=== PATIENT | female | born 1995 | race Caucasian/White ===

== ENCOUNTER 2017-09-06 19:15 | Emergency (ER) | payer MEDICAID, OTHER ==
[2017-09-06] MEDS ORDERED: SODIUM CHLORIDE 0.9% 1,000 ML IV ONE (19:30)
[2017-09-06 20:05] LABS: BASOPHILS # (AUTO) 0.2 10^3/uL (0.0-0.1); BASOPHILS % (AUTO) 1.2 %; EOSINOPHILS % (AUTO) 0.2 %; HGB - HEMOGLOBIN 14.2 g/dL (12.0-16.0); LYMPHOCYTES # (AUTO) 1.8 10^3/uL (1.5-3.5); LYMPHOCYTES % (AUTO) 11.2 %; MEAN CORPUSCULAR HEMOGLOBIN 31.2 pg (27.0-31.0); MEAN CORPUSCULAR HGB CONC 33.7 g/dL (32.0-36.0); MEAN CORPUSCULAR VOLUME 92.6 fL (81.0-99.0); MEAN PLATELET VOLUME 8.3 fL (7.9-10.8); MONOCYTES # (AUTO) 1.3 10^3/uL (0.0-1.0); MONOCYTES % (AUTO) 8.2 %; NEUTROPHILS # (AUTO) 12.4 10^3/uL (1.5-6.6); NEUTROPHILS % (AUTO) 79.2 %; RED BLOOD COUNT 4.54 10^6/uL (4.20-5.40); RED CELL DISTRIBUTION WIDTH 12.5 % (12.0-15.0); UNCORRECTED WHITE BLOOD COUNT 15.6 x10^3/uL; WHITE BLOOD COUNT 15.6 x10^3/uL (4.8-10.8)
--- NOTE | 2017-09-06 20:10 | ED Physician Documentation ---
PD HPI SYNCOPE - Stated complaint Stated Complaint: SYNCOPE - Chief complaint Chief Complaint: Neuro - History obtained from History obtained from: Patient, Family - History of Present Illness Witnessed: Witnessed Timing - onset: Today Duration: Seconds (5) Preceding symptoms: Light headed, Generalized weakness, Other (nausea) Associated symptoms: No: Seizure, Incontinant of urine, Incontinant of stool, Headache, Vision changes, Chest pain, Palpitations, Diaphoresis, Dyspnea, Abdominal pain Contributing factors: Other (was in a hot shower) Injury occurred: None. No: Fell, Head injury, Neck injury, Bit tongue Pain level max: 0 Pain level now: 0 Similar symptoms before: Has not had sx before Recently seen: Not recently seen Review of Systems Constitutional: denies: Fever, Chills GI: denies: Vomiting, Diarrhea : denies: Dysuria, Frequency, Hesitancy, Now EGA Skin: denies: Rash Musculoskeletal: denies: Neck pain, Back pain Neurologic: denies: Generalized weakness, Focal weakness, Numbness, Seizure, Confused, Altered mental status, Headache, Head injury, LOC PD PAST MEDICAL HISTORY - Past Medical History Past Medical History: No - Past Surgical History Past Surgical History: No - Present Medications Home Medications: Ambulatory Orders Medication Instructions Recorded Confirmed No Known Home Medications [No 09/06/17 09/06/17 Known Home Medications] - Allergies Allergies/Adverse Reactions: Allergies Allergy/AdvReac Type Severity Reaction Status Date / Time No Known Drug Allergies Allergy Verified 09/06/17 19:29 - Social History Does the pt smoke?: No Smoking Status: Never smoker Does the pt drink ETOH?: No Does the pt have substance abuse?: No - Immunizations Immunizations are current?: Yes PD ED PE NORMAL - Vitals Vital signs reviewed: Yes - General General: Alert and oriented X 3, No acute distress, Well developed/nourished - HEENT HEENT: Atraumatic, PERRL, Ears normal, Moist mucous membranes - Neck Neck: Supple, no meningeal sign, No bony TTP - Cardiac Cardiac: RRR, No murmur, Strong equal pulses - Respiratory Respiratory: No respiratory distress, Clear bilaterally - Abdomen Abdomen: Soft, Non tender, Non distended - Back Back: No CVA TTP, No spinal TTP - Derm Derm: Warm and dry, No rash - Extremities Extremities: No edema, No calf tenderness / cord - Neuro Neuro: Alert and oriented X 3, mobile phlebotomist 2-12 intact, No motor deficit, No sensory deficit, Normal speech Eye Opening: Spontaneous Motor: Obeys Commands Verbal: Oriented GCS Score: 15 - Psych Psych: Normal mood, Normal affect Results - Vitals Vitals: Vital Signs - 24 hr 09/06/17 09/06/17 09/06/17 19:20 19:39 21:22 Temperature 37.1 C 37.2 C Heart Rate 112 H 110 H Respiratory 18 18 Rate Blood Pressure 142/102 H 140/86 H O2 Saturation 98 100 09/06/17 22:05 Temperature Heart Rate 75 Respiratory 18 Rate Blood Pressure 139/72 H O2 Saturation 97 Oxygen O2 Source Room air - EKG (time done) 2002 Rate: Rate (enter#) (76) Rhythm: NSR (sinus arrhythmia) [place]: Normal Intervals: Normal [place] QRS: Normal Ischemia: Normal ST segments Computer interpretation: Agree with computer - Labs Labs: Laboratory Tests 09/06/17 09/06/17 09/06/17 19:54 19:54 19:54 WBC 15.6 H RBC 4.54 Hgb 14.2 Hct 42.0 MCV 92.6 MCH 31.2 H MCHC 33.7 RDW 12.5 Plt Count 319 MPV 8.3 Neut # 12.4 H Lymph # 1.8 [place] # 1.3 H Eos # 0.0 Baso # 0.2 H Absolute Nucleated RBC 0.00 Nucleated RBC % 0.0 D-Dimer 536.4 H Sodium 138 Potassium 3.3 L Chloride 102 Carbon Dioxide 24 Anion Gap 12.0 BUN 15 Creatinine 0.7 Estimated GFR (MDRD) 105 Glucose 119 H Calcium 9.2 Total Bilirubin 0.8 AST 20 ALT 14 Alkaline Phosphatase 39 L Troponin I Total Protein 8.0 Albumin 4.2 Globulin 3.8 Albumin/Globulin Ratio 1.1 Lipase 26 Urine Color Urine Clarity Urine pH Ur Specific [place] Urine Protein Urine Glucose (UA) Urine Ketones Urine Occult Blood Urine Nitrite Urine Bilirubin Urine Urobilinogen Ur Leukocyte Esterase Urine RBC Urine WBC Ur Squamous Epith Cells Urine Bacteria Ur Microscopic Review Urine Culture Comments Urine HCG, Qual 09/06/17 09/06/17 19:54 20:25 WBC RBC Hgb Hct MCV MCH MCHC RDW Plt Count MPV Neut # Lymph # [place] # Eos # Baso # Absolute Nucleated RBC Nucleated RBC % D-Dimer Sodium Potassium Chloride Carbon Dioxide Anion Gap BUN Creatinine Estimated GFR (MDRD) Glucose Calcium Total Bilirubin AST ALT Alkaline Phosphatase Troponin I < 0.04 Total Protein Albumin Globulin Albumin/Globulin Ratio Lipase Urine Color YELLOW Urine Clarity CLOUDY Urine pH 6.0 Ur Specific [place] 1.025 Urine Protein TRACE Urine Glucose (UA) NEGATIVE Urine Ketones TRACE Urine Occult Blood SMALL H Urine Nitrite NEGATIVE Urine Bilirubin SMALL H Urine Urobilinogen 0.2 (NORMAL) Ur Leukocyte Esterase NEGATIVE Urine RBC 6-10 H Urine WBC 4-5 Ur Squamous Epith Cells NONE SEEN Urine Bacteria Rare Ur Microscopic Review INDICATED Urine Culture Comments NOT INDICATED Urine HCG, Qual NEGATIVE - Rads (name of study) cxr Radiology: Prelim report reviewed, EMP read contemporaneously, See rad report ( normal) CT PA Radiology: Prelim report reviewed, EMP read contemporaneously, See rad report ( No evidence for pulmonary emboli. Mild to moderate motion artifact limited. No acute findings are seen) PD MEDICAL DECISION MAKING - ED course Complexity details: reviewed results, re-evaluated patient, considered differential, d/w patient, d/w family ED course: Patient is a 22-year-old female who presents to the emergency department with syncope today. This was occurred while she was in the shower, likely vasovagal. She is well-appearing, nontoxic. No acute findings on EKG. Her white blood cell count was elevated and she was tachycardic and denied any recent illnesses originally, therefore a d-dimer was performed which was elevated. CT scan was then undertaken which is negative for PE. Patient then stated that she had been sick with a viral URI over the past few weeks. We will continue supportive care and follow-up with her PCP. Patient counseled regarding signs and symptoms for which I believe and urgent re-evaluation would be necessary. Patient with good understanding of and agreement to plan and is comfortable going home at this time This document was made in part using voice recognition software. While efforts are made to proofread this document, sound alike and grammatical errors may occur. Departure - Departure Disposition: 01 Home, Self Care Clinical Impression: Vasovagal syncope Condition: Good Instructions: ED Syncope Vasovagal Follow-Up: Ember Umanzor MD [Primary Care Provider] - Within 1 week Comments: Drink plenty of fluids at home. Your tests are normal tonight.
[2017-09-06 20:19] LABS: ALBUMIN/GLOBULIN RATIO 1.1 (1.0-2.2); BILIRUBIN,TOTAL 0.8 mg/dL (0.2-1.0); CALCIUM 9.2 mg/dL (8.5-10.3); CREATININE 0.7 mg/dL (0.4-1.0); POTASSIUM 3.3 mmol/L (3.5-5.0)
--- NOTE | 2017-09-06 20:52 | XRAY Preliminary Report ---
Exam: XR CHEST 1 VIEW IMPRESSION: Normal single view chest. [facility] SITE ID: [id number]
--- NOTE | 2017-09-06 20:55 | XRAY Report ---
EXAM: CHEST RADIOGRAPHY EXAM DATE: 09/06/2017 08:46 PM. CLINICAL HISTORY: Syncope. COMPARISON: None. TECHNIQUE: 1 view. FINDINGS: Lungs/Pleura: No focal opacities evident. No pleural effusion. No pneumothorax. Mediastinum: Within exam limitations, the cardiomediastinal contour is normal. Other: None. IMPRESSION: Normal single view chest. [facility] Referring Provider Line: [phone] SITE ID: [id number]
[2017-09-06] MEDS ORDERED: ONDANSETRON 4 MG/2 ML VIAL IVP STA (20:56)
[2017-09-06 21:02] LABS: BILIRUBIN,URINE SMALL (NEGATIVE); HCG UR QUAL NEGATIVE; UA w/ MICROSCOPIC CHARGE YES
[2017-09-06] MEDS ORDERED: IOPAMIDOL-300 100 ML VIAL ONE (21:11)
[2017-09-06 21:14] LABS: UR CULTURE IF IND NOT INDICATED
[2017-09-06] MEDS ORDERED: ONDANSETRON 4 MG/2 ML VIAL ONE (21:19)
[2017-09-06] MEDS ORDERED: IOPAMIDOL-300 100 ML VIAL IVP ONE (21:38)
--- NOTE | 2017-09-06 22:35 | CT Preliminary Report ---
Exam: CT CHEST ANGIO (PE) IMPRESSION: 1. No evidence for pulmonary emboli. Mild to moderate motion artifact limited. No acute findings are seen. [facility] SITE ID: [id number]
--- NOTE | 2017-09-06 22:37 | CT Report ---
EXAM: CT ANGIOGRAM CHEST EXAM DATE: 09/06/2017 09:49 PM. CLINICAL HISTORY: Syncope, elevated d-dimer. COMPARISON: None. TECHNIQUE: Routine helical imaging was performed through the chest in the pulmonary arterial phase. I V Contrast: 80 mL Isovue 300. Reconstructions: Coronal 3-D MIP reconstructions.Sagittal and coronal. In accordance with CT protocol optimization, one or more of the following dose reduction techniques w ere utilized for this exam: automated exposure control, adjustment of mA and/or KV based on patient s ize, or use of iterative reconstructive technique. FINDINGS: Pulmonary Arteries: No evidence for pulmonary emboli. Mild to moderate motion artifact limited. Lungs/Pleura: No consolidation, nodules, or edema. No effusions or pneumothorax. Motion artifact limi manuel. Mediastinum: Normal. No cardiac enlargement or adenopathy. Thoracic Aorta: Unremarkable. Upper Abdomen: Unremarkable. IMPRESSION: 1. No evidence for pulmonary emboli. Mild to moderate motion artifact limited. No acute findings are seen. [facility] Referring Provider Line: [phone] SITE ID: [id number]
[2017-09-06 23:06] VITALS: BP 135/71
== END 2017-09-06 22:55 | disposition home or self-care (01) ==
LOC: ED 19:15
DX: R55 Syncope and collapse (principal)
CPT/HCPCS: 36415; 71010; 71275; 80053; 81001; 81025; 83690; 84484; 85025; 85379; 93005; 96360; 99283; 99284; Q9967; 81003; 87086

== ENCOUNTER 2021-11-15 20:10 | Emergency (ER) | payer MEDICAID ==
[2021-11-15 20:48] LABS: BASOPHILS # (AUTO) 0.1 10^3/uL (0.0-0.1); BASOPHILS % (AUTO) 0.9 %; EOSINOPHILS # (AUTO) 0.2 10^3/uL (0.0-0.7); EOSINOPHILS % (AUTO) 1.5 %; HCT - HEMATOCRIT 34.2 % (37.0-47.0); HGB - HEMOGLOBIN 11.6 g/dL (12.0-16.0); LYMPHOCYTES # (AUTO) 2.7 10^3/uL (1.5-3.5); LYMPHOCYTES % (AUTO) 22.9 %; MEAN CORPUSCULAR HEMOGLOBIN 30.1 pg (27.0-31.0); MEAN CORPUSCULAR HGB CONC 33.9 g/dL (32.0-36.0); MEAN CORPUSCULAR VOLUME 88.6 fL (81.0-99.0); MEAN PLATELET VOLUME 8.6 fL (7.9-10.8); MONOCYTES # (AUTO) 0.9 10^3/uL (0.0-1.0); NEUTROPHILS # (AUTO) 7.7 10^3/uL (1.5-6.6); NEUTROPHILS % (AUTO) 65.8 %; PLT - PLATELET COUNT 551 10^3/uL (130-450); RED BLOOD COUNT 3.86 10^6/uL (4.20-5.40); WHITE BLOOD COUNT 11.7 x10^3/uL (4.8-10.8)
--- NOTE | 2021-11-15 20:49 | ED Physician Documentation ---
History of Present Illness - Stated complaint Stated Complaint: BLURRY VISION/POST C SECTION - Chief complaint Chief Complaint: Neuro - History obtained from History obtained from: Patient - Additonal information Additional information: G1, P1 previously healthy, with PMH of iron deficiency anemia only during , status post November [address] 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 sent in by her orientation and mobility instructor. patient reports she had uncomplicated prior to delivery, had uncomplicated c section and was dc'd after 36h. urinating and defecating normally. denies pain or fever. infant is also doing well and had no nicu stay. Review of Systems Ten Systems: 10 systems reviewed and negative Constitutional: denies: Fever, Chills Cardiac: denies: Chest pain / pressure Respiratory: denies: Dyspnea, Cough GI: reports: Nausea. denies: Abdominal Pain, Vomiting : denies: Dysuria Neurologic: reports: Headache, Other (vision changes) PD PAST MEDICAL HISTORY - Past Surgical History Past Surgical History: No - Present Medications Home Medications: Ambulatory Orders Medication Instructions Recorded Confirmed No Known Home Medications 09/06/17 09/06/17 - Allergies Allergies/Adverse Reactions: Allergies Allergy/AdvReac Type Severity Reaction Status Date / Time No Known Drug Allergies Allergy Verified 11/15/21 20:19 - Social History Does the pt smoke?: No Smoking Status: Never smoker Does the pt drink ETOH?: No Does the pt have substance abuse?: No - Immunizations Immunizations are current?: Yes PD ED PE NORMAL - Vitals Vital signs reviewed: Yes - General General: Alert and oriented X 3, No acute distress, Well developed/nourished - HEENT HEENT: Atraumatic, PERRL, EOMI - Neck Neck: Supple, no meningeal sign - Cardiac Cardiac: RRR - Respiratory Respiratory: No respiratory distress, Clear bilaterally - Abdomen Abdomen: Non tender, Non distended, Other (horizontal incision site at lower abdomen clean, nontender, healing well) - Back Back: No CVA TTP - Derm Derm: Normal color, Warm and dry - Extremities Extremities: No deformity, No edema - Neuro Neuro: Alert and oriented X 3, No motor deficit, No sensory deficit, Normal speech - Psych Psych: Normal mood, Normal affect Results - Vitals Vitals: Vital Signs - 24 hr 11/15/21 11/15/21 11/15/21 20:14 20:18 20:35 Temperature 36.2 C L Heart Rate 101 H 93 61 Respiratory 18 22 20 Rate Blood Pressure 143/88 H 134/92 H 142/87 H O2 Saturation 97 98 98 11/15/21 21:42 Temperature Heart Rate 60 Respiratory 20 Rate Blood Pressure 142/87 H O2 Saturation 98 Oxygen O2 Source Room air - Labs Labs: Laboratory Tests 11/15/21 11/15/21 11/15/21 20:40 20:40 20:45 WBC 11.7 H RBC 3.86 L Hgb 11.6 L Hct 34.2 L MCV 88.6 MCH 30.1 MCHC 33.9 RDW 16.0 H Plt Count 551 H MPV 8.6 Neut # (Auto) 7.7 H Lymph # (Auto) 2.7 [place] # (Auto) 0.9 Eos # (Auto) 0.2 Baso # (Auto) 0.1 Absolute Nucleated RBC 0.00 Nucleated RBC % 0.0 Sodium 138 Potassium 3.8 Chloride 105 Carbon Dioxide 22 Anion Gap 11.0 BUN 19 Creatinine 0.6 Estimated GFR (MDRD) 121 Glucose 100 Calcium 9.6 Magnesium 2.0 Total Bilirubin 0.4 AST 17 ALT 18 Alkaline Phosphatase 105 Total Protein 7.8 Albumin 3.4 Globulin 4.4 H Albumin/Globulin Ratio 0.8 L Urine Color YELLOW Urine Clarity HAZY Urine pH 5.5 Ur Specific [place] >=1.030 H Urine Protein NEGATIVE Urine Glucose (UA) NEGATIVE Urine Ketones NEGATIVE Urine Occult Blood LARGE H Urine Nitrite NEGATIVE Urine Bilirubin NEGATIVE Urine Urobilinogen 0.2 (NORMAL) Ur Leukocyte Esterase NEGATIVE Urine RBC 6-10 H Urine WBC 0-3 Ur Squamous Epith Cells FEW Squamous Amorphous Sediment Few Urine Bacteria Few Ur Microscopic Review INDICATED Urine Culture Comments NOT INDICATED U Random Total Protein 11/15/21 20:45 WBC RBC Hgb Hct MCV MCH MCHC RDW Plt Count MPV Neut # (Auto) Lymph # (Auto) [place] # (Auto) Eos # (Auto) Baso # (Auto) Absolute Nucleated RBC Nucleated RBC % Sodium Potassium Chloride Carbon Dioxide Anion Gap BUN Creatinine Estimated GFR (MDRD) Glucose Calcium Magnesium Total Bilirubin AST ALT Alkaline Phosphatase Total Protein Albumin Globulin Albumin/Globulin Ratio Urine Color Urine Clarity Urine pH Ur Specific [place] Urine Protein Urine Glucose (UA) Urine Ketones Urine Occult Blood Urine Nitrite Urine Bilirubin Urine Urobilinogen Ur Leukocyte Esterase Urine RBC Urine WBC Ur Squamous Epith Cells Amorphous Sediment Urine Bacteria Ur Microscopic Review Urine Culture Comments U Random Total Protein 15 PD MEDICAL DECISION MAKING - ED course ED course: 26yF presents 8 days c section with vision changes, nausea, headache, dizziness, sent by director of securities and real estate for evaluation. Asymptomatic at present. Will obtain preeclampsia screening labs, monitor vitals, reassess. Patient's BP consistently in 140s/90s. previous 2017 BPs documented were 142/102, 140/86. Patient completely asymptomatic here. contacted [facility] and spoke with timi Escobarife with the group patient sees in regards to normal labs, asymptomatic patient presentation. Also d/w our orientation and mobility instructor relocation services specialist, Dr. Moore who recommends home BP monitoring and preeclampsia return precautions. d/w patient, return precautions given. plan to f/u with [facility] orientation and mobility instructor. Departure - Departure Disposition: 01 Home, Self Care Clinical Impression: Headache, Vision changes, Dizziness, Nausea Condition: Good Instructions: Comments: You were seen in the emergency department for evaluation for preeclampsia after a c section. Your blood pressure has been in the 140s / 90s in the ED and your labwork and urine tests were normal. Please follow up with your orientation and mobility instructor this week. Return to the ED if your systolic blood pressure (top number) goes above 149 or your diastolic blood pressure (bottom number) goes above 99, if you have right upper abdominal pain, persistent dizziness, black/bright spots in your vision, headache that doesn't go away with tylenol, or any other concerns.
[2021-11-15 20:59] LABS: ALBUMIN 3.4 g/dL (3.2-5.5); ALBUMIN/GLOBULIN RATIO 0.8 (1.0-2.2); BILIRUBIN,TOTAL 0.4 mg/dL (0.2-1.0); CALCIUM 9.6 mg/dL (8.5-10.3); CREATININE 0.6 mg/dL (0.4-1.0); POTASSIUM 3.8 mmol/L (3.5-5.0); TOTAL PROTEIN 7.8 g/dL (6.7-8.2)
[2021-11-15 21:36] LABS: BILIRUBIN,URINE NEGATIVE (NEGATIVE); CLARITY,URINE HAZY (CLEAR); GLUCOSE, URINE (UA) NEGATIVE (NEGATIVE); KETONES,URINE (UA) NEGATIVE (NEGATIVE); LEUKOCYTE ESTERASE, URINE NEGATIVE (NEGATIVE); NITRITE,URINE NEGATIVE (NEGATIVE); OCCULT BLOOD,URINE LARGE (NEGATIVE); PH,URINE 5.5 PH (5.0-7.5); PROTEIN,URINE NEGATIVE (NEGATIVE); UROBILINOGEN,URINE 0.2 (NORMAL) E.U./dL (NORMAL)
[2021-11-15 21:42] VITALS: BP 142/87
[2021-11-15 21:54] LABS: AMORPHOUS SEDIMENT,UR Few /LPF; BACTERIA,URINE Few /HPF (None Seen); SQUAMOUS EPITHELIAL CELL,UR FEW Squamous (<= Few); WBC,URINE 0-3 /HPF (0-5)
== END 2021-11-15 22:43 | disposition home or self-care (01) ==
LOC: ED 20:10
DX: G89.18 Other acute postprocedural pain (principal); R51.9 Headache, unspecified; R42 Dizziness and giddiness; H53.8 Other visual disturbances
CPT/HCPCS: 36415; 80053; 81001; 81003; 83735; 84156; 85025; 87086; 99284